=== PATIENT | male | born 1975 | race African-American/Black ===

== ENCOUNTER 2019-04-02 17:41 | Emergency (ER) | payer OTHER ==
[~2019-04-02] VITALS: Ht 177.8 cm; Wt 105.2 kg
[2019-04-02] MEDS ORDERED: ASPIR 8181 MG PO (17:48)
[2019-04-02] MEDS ORDERED: NEURONTIN 300300 M1 PO (17:48)
[2019-04-02] MEDS ORDERED: LISINOPRIL2.5 M1 PO (17:48)
[2019-04-02] MEDS ORDERED: METFORMIN HCL500 MG PO (17:48)
[2019-04-02 18:16] LABS: ABSOLUTE NEUTROPHILS 7.2 thou/uL (1.4-8.2); EOSINOPHILS 1.4 % (0.0-3.0); HEMATOCRIT 47.8 % (42.0-52.0); HEMOGLOBIN 15.9 gm/dL (14.0-18.0); LYMPHOCYTES 21.4 % (24.0-44.0); MCH 29.5 pg (26.0-34.0); MCHC 33.2 g/dL (28.0-37.0); MONOCYTES 9.7 % (1.0-8.0); PLATELET COUNT 226 thou/uL (150-400); POLYS 66.5 % (36.0-66.0); RBC 5.37 mil/uL (4.50-6.00); RDW 13.9 % (10.5-14.5); WBC 10.8 thou/uL (4.0-11.0)
[2019-04-02 18:21] LABS: ANION GAP 9 mmol/L (7-16); BUN 19 mg/dL (7-18); CALCIUM 9.4 mg/dL (8.5-10.1); CHLORIDE 100 mmol/L (98-107); CO2 30 mmol/L (21-32); CREATININE 1.6 mg/dL (0.7-1.3); GLUCOSE 121 mg/dL (74-106); POTASSIUM 3.9 mmol/L (3.5-5.1); SODIUM 139 mmol/L (136-145)
[2019-04-02 18:29] LABS: TROPONIN-I <0.06 ng/mL (<0.06)
[2019-04-02 21:04] VITALS: BP 122/74
--- NOTE | 2019-04-03 08:55 | EKG ---
[address] [place] [address] ELECTROCARDIOGRAM REPORT Name: TONE EASTMAN Room #: STEVE Gómez#: [id number] Admission: 04/02/19 Attend Phys: Discharge: 04/02/19 Date of : 71 Report #: [id number] THIS REPORT FOR: //name// [facility] ED Test Date: 2019-04-02 Test Time: 19:12:35 Pat Name: TONE EASTMAN Department: Room: Gender: [employer]: CHARLY : 1975 Requested By: Gerry Head Order Number: [id number] MD: Ozzie Varela Measurements Intervals [place] Rate: 77 P: 25 NC: 127 QRS: 68 QRSD: 93 T: 47 QT: 393 QTc: 445 Interpretive Statements Sinus rhythm Nonspecific ST segment abnormality No previous ECG available for comparison Electronically Signed On 04-03-2019 8:55:40 CDT by Ozzie Varela [email or web address] <ELECTRONICALLY SIGNED> By: Ozzie Varela MD, [facility] 04/03/19 [id number] 11 Ozzie Varela MD, FACC /EPI
== END 2019-04-02 21:05 | disposition home or self-care (01) ==
LOC: ER 17:41
PROVIDERS: Emergency Medicine
DX: S00.03XA Contusion of scalp, initial encounter (principal); E86.0 Dehydration; R42 Dizziness and giddiness; R55 Syncope and collapse; I10 Essential (primary) hypertension; E11.9 Type 2 diabetes mellitus without complications; F41.9 Anxiety disorder, unspecified; F31.9 Bipolar disorder, unspecified; F17.210 Nicotine dependence, cigarettes, uncomplicated; W18.39XA Other fall on same level, initial encounter; Y93.89 Activity, other specified; Y92.89 Other specified places as the place of occurrence of the external cause; Y99.8 Other external cause status